=== PATIENT | male | born 1950 | race Caucasian/White ===

== ENCOUNTER 2017-05-24 12:12 | Emergency (ER) | payer MEDICAID, MEDICARE, OTHER ==
[~2017-05-24] VITALS: Ht 172.7 cm; Wt 75.5 kg
[~2017-05-24 12:12] MED LIST: FOLI1TAB16 PO
[2017-05-24] MEDS ORDERED: CEPH500C5 PO (13:26)
[2017-05-24] MEDS ORDERED: SULF1TAB49 PO (13:26)
[2017-05-24] MEDS ORDERED: silver sulfadiazine cream 50gm TP ONE (13:30)
[2017-05-24 13:39] VITALS: BP 150/104
== END 2017-05-24 13:40 | disposition home or self-care (01) ==
LOC: ER 12:13
DX: L03.116 Cellulitis of left lower limb (principal); F17.210 Nicotine dependence, cigarettes, uncomplicated; F12.10 Cannabis abuse, uncomplicated; I10 Essential (primary) hypertension; M10.9 Gout, unspecified; Z88.0 Allergy status to penicillin; Z71.6 Tobacco abuse counseling; Z79.899 Other long term (current) drug therapy; Z59.0 Homelessness
CPT/HCPCS: 99284

== ENCOUNTER 2017-09-01 10:28 | Emergency (ER) | payer MEDICARE ==
[~2017-09-01] VITALS: Ht 172.7 cm; Wt 74.1 kg
[~2017-09-01 10:28] MED LIST changes: +CEPH500C5 PO
[2017-09-01 10:32] VITALS: BP 124/94
[2017-09-01] MEDS ORDERED: fluconazole 100mg tablet PO ONE (11:25)
[2017-09-01] MEDS ORDERED: sulfamethoxazole/trimethoprim DS (800/160mg) tablet PO ONE (11:25)
[2017-09-01] MEDS ORDERED: fluconazole 150mg tablet PO ONE (11:30)
[2017-09-01] MEDS ORDERED: TOLN108P2 TP ×3 (12:14→12:55)
[2017-09-01] MEDS ORDERED: FLUC200T PO ×3 (12:14→12:55)
[2017-09-01] MEDS ORDERED: CLIN-79 PO ×2 (12:14→12:55)
[2017-09-01] MEDS ORDERED: SULF1TAB49 PO (12:30)
[2017-09-01] MEDS ORDERED: ACET-2119 PO (13:00)
== END 2017-09-01 13:32 | disposition home or self-care (01) ==
LOC: ER 10:28
DX: L08.9 Local infection of the skin and subcutaneous tissue, unspecified (principal); I10 Essential (primary) hypertension; F12.90 Cannabis use, unspecified, uncomplicated; Z59.0 Homelessness; Z88.0 Allergy status to penicillin; Z56.0 Unemployment, unspecified; Z79.899 Other long term (current) drug therapy
CPT/HCPCS: 73630; 93005; 99284; A6222

== ENCOUNTER 2017-09-13 09:19 | Outpatient (CLI) | payer MEDICARE ==
[~2017-09-13 09:19] MED LIST changes: +ACET-2119 PO; +CLIN150C8 PO; +FLUC200T PO; +TOLN108P2 TP
[2017-09-13] MEDS ORDERED: nystatin 15 GM powder TP ONE (10:34)
[2017-09-13] MEDS ORDERED: NYSTATIN CREAM - 30GM TUBE TP ONE (11:00)
== END 2017-09-13 10:57 | disposition home or self-care (01) ==
LOC: WOUND CARE 09:19
PROVIDERS: ATTEND Surgery
DX: L03.116 Cellulitis of left lower limb (principal); B35.3 Tinea pedis; I10 Essential (primary) hypertension; F12.90 Cannabis use, unspecified, uncomplicated; Z79.899 Other long term (current) drug therapy
CPT/HCPCS: 99215; Q4106

== ENCOUNTER 2017-09-28 09:55 | Outpatient (CLI) | payer MEDICARE ==
[~2017-09-28 09:55] MED LIST changes: -CEPH500C5 PO
== END 2017-09-28 11:17 | disposition home or self-care (01) ==
LOC: WOUND CARE 09:55 → EDSTATUS 10:00 → WOUND CARE 11:17
PROVIDERS: ATTEND Surgery
DX: L97.521 Non-pressure chronic ulcer of other part of left foot limited to breakdown of skin (principal); L03.116 Cellulitis of left lower limb; B35.3 Tinea pedis; I10 Essential (primary) hypertension; F12.90 Cannabis use, unspecified, uncomplicated; Z79.899 Other long term (current) drug therapy
CPT/HCPCS: 99214

== ENCOUNTER 2018-01-01 11:33 | Inpatient (IN) | payer MEDICARE, OTHER ==
[~2018-01-01] VITALS: Ht 162.6 cm; Wt 72.7 kg
[~2018-01-01 11:33] MED LIST changes: -ACET-2119 PO
[2018-01-01] MEDS ORDERED: normal saline 1000ML IV soln IVB ONE (12:10)
[2018-01-01 12:36] LABS: BASOPHILS # (AUTO) 0.1 X10'3 (0-0.2); BASOPHILS % (AUTO) 0.9 % (0-1); EOSINOPHILS # (AUTO) 0.2 X10'3 (0-0.9); EOSINOPHILS % (AUTO) 2.7 % (0-6); HEMATOCRIT 35.3 % (42.0-52.0); HEMOGLOBIN 12.3 g/dl (14.0-17.9); LYMPHOCYTES % (AUTO) 35.7 % (21-51); MEAN CORPUSCULAR HEMOGLOBIN 31.9 PG (27.0-31.0); MEAN CORPUSCULAR HGB CONC 34.8 % (33.0-36.5); MEAN CORPUSCULAR VOLUME 91.9 FL (78-98); MEAN PLATELET VOLUME 7.6 FL (7.4-10.4); MONOCYTES # (AUTO) 1.2 X10'3 (0-0.9); MONOCYTES % (AUTO) 14.3 % (2-12); NEUTROPHILS # (AUTO) 3.8 X10'3 (1.8-7.7); NEUTROPHILS % (AUTO) 46.4 % (42-75); PLATELET COUNT 218 X10'3 (140-440); RED BLOOD COUNT 3.84 X10'6 (4.70-6.10); RED CELL DISTRIBUTION WIDTH 15.4 % (11.5-14.5); WHITE BLOOD COUNT 8.3 X10'3 (4.5-11.0)
[2018-01-01 12:42] LABS: PARTIAL THROMBOPLASTIN TIME 26 SECONDS (22-32)
[2018-01-01 12:46] LABS: ALANINE AMINOTRANSFERASE 111 U/L (12-78); ALBUMIN/GLOBULIN RATIO 0.8 (1.1-1.5); ALKALINE PHOSPHATASE 60 IU/L (46-116); ANION GAP 8 (8-16); ASPARTATE AMINO TRANSFERASE 80 U/L (10-37); BILIRUBIN,TOTAL 0.3 MG/DL (0.1-1.0); BLOOD UREA NITROGEN 8 MG/DL (7-18); BUN/CREATININE RATIO 9.2 (5.4-32.0); CALCIUM 8.5 MG/DL (8.5-10.1); CHLORIDE 97 MMOL/L (99-107); CREATININE 0.87 MG/DL (0.60-1.10); ETHANOL < 0.010 GM/DL (0.0-0.010); GLUCOSE 102 MG/DL (70-104); POTASSIUM 3.7 MMOL/L (3.5-5.1); SODIUM 131 MMOL/L (135-145); TOTAL CARBON DIOXIDE 25.8 MMOL/L (24-32); TOTAL PROTEIN 6.9 G/DL (6.4-8.2); eGFR 88 ML/MIN
[2018-01-01 13:34] LABS: CLARITY,URINE SLIGHTLY CLOUDY (Clear); COLOR,URINE YELLOW (Yellow); GLUCOSE, URINE NEGATIVE (Neg); KETONES,URINE NEGATIVE (Neg); LEUKOCYTE ESTERASE ,URINE NEGATIVE (Neg); NITRITES, URINE NEGATIVE (Neg); OCCULT BLOOD,URINE NEGATIVE (Neg); PH,URINE 5.5 (4.8-8.0); PROTEIN,URINE NEGATIVE (Neg); UROBILINOGEN,URINE 0.2 E.U/dL (0.2-1.0)
[2018-01-01 13:38] LABS: URINE AMPHETAMINE SCREEN POSITIVE (Neg); URINE BARBITUATE SCREEN NEGATIVE (Neg); URINE BENZODIAZEPINES SCREEN NEGATIVE (Neg); URINE CANNABINOID SCREEN NEGATIVE (Neg); URINE COCAINE SCREEN NEGATIVE (Neg); URINE METHADONE SCREEN NEGATIVE (Neg); URINE OPIATE SCREEN NEGATIVE (Neg); URINE PHENCYCLIDINE SCREEN NEGATIVE (Neg)
[2018-01-01 13:39] LABS: UA COLLECTION TYPE URINAL
[2018-01-01 13:42] LABS: BACTERIA,URINE FEW /HPF (Neg); HYALINE CASTS 0-3 /LPF (NEGATIVE); MUCUS STRANDS MANY /LPF (Neg); RBC,URINE 0-2 /HPF (0-2); RENAL CELLS, URINE FEW /HPF; SQUAMOUS EPITHELIAL CELL,UR MANY /LPF (FEW); TRANSITIONAL EPI CELLS,URINE FEW /HPF; WBC,URINE 0-4 /HPF (0-4)
[2018-01-01] MEDS ORDERED: ondansetron/PF 4mg/2ml inj IV PRN (14:15)
[2018-01-01] MEDS ORDERED: acetaminophen 325mg tablet PO PRN (14:15)
[2018-01-01] MEDS ORDERED: LORazepam 2 mg/ml vial IV PRN (14:15)
[2018-01-01] MEDS ORDERED: potassium Cl 40MEQ/NS 500ml 500 ML IV PRN ×2 (14:15)
[2018-01-01] MEDS ORDERED: mag hydrox/Alum hydrox/simeth 30ml oral suspension PO PRN (14:15)
[2018-01-01] MEDS ORDERED: magnesium 4gm in 100ml NS 100 ML IV PRN (14:15)
[2018-01-01] MEDS ORDERED: dextrose 50%-water 50ml dispensing syringe IV PRN (14:15)
[2018-01-01] MEDS ORDERED: LORazepam 1 MG tablet PO PRN (14:15)
[2018-01-01] MEDS ORDERED: potassium Cl 20 mEq SR tablet PO PRN ×2 (14:15)
[2018-01-01] MEDS ORDERED: bisacodyl 10mg suppository rectal RC PRN (14:15)
[2018-01-01] MEDS ORDERED: magnesium Cl slow-release 64mg tablet PO PRN (14:15)
[2018-01-01] MEDS ORDERED: magnesium hydroxide 30ml (MOM) UD suspension PO PRN (14:15)
[2018-01-01] MEDS ORDERED: magnesium 1gm/100ml D5W IVPB 100 ML IV PRN (14:15)
[2018-01-01] MEDS ORDERED: magnesium 2GM in 50ml NS 50 ML IV PRN (14:38)
[2018-01-01] MEDS: potassium Cl 20mEq in NS 1,000 ML IV SCH (15:01)
[2018-01-01] MEDS: folic acid inj. 2 MG, thiamine inj. 100 MG, MVI, adult No.4 with vit. K 10 ML in dextro... IV SCH ×4 (16:07)
[2018-01-01 17:15] VITALS: BP 158/89
[2018-01-01] MEDS ORDERED: NO HOME MEDS (17:52)
[2018-01-01 18:00] VITALS: BP 110/65
[2018-01-01] MEDS: docusate sod 100mg capsule PO SCH (20:00)
[2018-01-01] MEDS ORDERED: pneumococcal 23-VAL P-sac vacc 25 mcg/0.5ml vial IMVAC ONE (20:15)
[2018-01-01 22:00] VITALS: BP 131/74
[2018-01-02] MEDS: potassium Cl 20mEq in NS 1,000 ML IV SCH ×3 (01:08→21:04)
[2018-01-02 05:00] VITALS: BP 151/72
[2018-01-02 07:00] LABS: ALANINE AMINOTRANSFERASE 85 U/L (12-78); ALBUMIN 2.6 G/DL (3.4-5.0); ALBUMIN/GLOBULIN RATIO 0.7 (1.1-1.5); ALKALINE PHOSPHATASE 47 IU/L (46-116); ANION GAP 9 (8-16); ASPARTATE AMINO TRANSFERASE 61 U/L (10-37); BILIRUBIN,TOTAL 0.1 MG/DL (0.1-1.0); BLOOD UREA NITROGEN 9 MG/DL (7-18); CHLORIDE 102 MMOL/L (99-107); CREATININE 0.69 MG/DL (0.60-1.10); GLUCOSE 91 MG/DL (70-104); MAGNESIUM 1.5 MG/DL (1.5-2.4); POTASSIUM 4.4 MMOL/L (3.5-5.1); SODIUM 136 MMOL/L (135-145); TOTAL CARBON DIOXIDE 24.9 MMOL/L (24-32); TOTAL PROTEIN 6.3 G/DL (6.4-8.2); eGFR > 90 ML/MIN
[2018-01-02] MEDS: docusate sod 100mg capsule PO SCH ×2 (07:21→21:02)
[2018-01-02] MEDS: folic acid inj. 2 MG, thiamine inj. 100 MG, MVI, adult No.4 with vit. K 10 ML in dextro... IV SCH ×4 (07:21)
[2018-01-02] MEDS: enoxaparin 40mg/0.4ml syringe SUBCUT SCH (07:22)
[2018-01-02] MEDS: K and/or MAG REPLACEMENT MC SCH (08:00)
[2018-01-02 10:00] VITALS: BP 130/76
[2018-01-02] MEDS ORDERED: iohexol 300mg/ml 100ml inj. ONE (13:40)
[2018-01-02 15:30] VITALS: BP 152/73
[2018-01-02] MEDS ORDERED: LIDOcaine 0.5% (5mg/ml) 50ml vial ONE (15:32)
[2018-01-02 15:39] VITALS: BP 130/80
[2018-01-02 18:00] VITALS: BP 116/83
[2018-01-02 22:00] VITALS: BP 130/73
[2018-01-03 05:48] LABS: ALANINE AMINOTRANSFERASE 66 U/L (12-78); ALBUMIN 2.5 G/DL (3.4-5.0); ALBUMIN/GLOBULIN RATIO 0.7 (1.1-1.5); ALKALINE PHOSPHATASE 42 IU/L (46-116); ANION GAP 7 (8-16); ASPARTATE AMINO TRANSFERASE 44 U/L (10-37); BILIRUBIN,TOTAL 0.2 MG/DL (0.1-1.0); BLOOD UREA NITROGEN 5 MG/DL (7-18); BUN/CREATININE RATIO 7.7 (5.4-32.0); CALCIUM 8.2 MG/DL (8.5-10.1); CHLORIDE 101 MMOL/L (99-107); CREATININE 0.65 MG/DL (0.60-1.10); GLUCOSE 90 MG/DL (70-104); MAGNESIUM 1.5 MG/DL (1.5-2.4); POTASSIUM 3.8 MMOL/L (3.5-5.1); SODIUM 135 MMOL/L (135-145); TOTAL CARBON DIOXIDE 26.8 MMOL/L (24-32); TOTAL PROTEIN 5.9 G/DL (6.4-8.2); eGFR > 90 ML/MIN
[2018-01-03 06:00] VITALS: BP 136/73
[2018-01-03] MEDS: K and/or MAG REPLACEMENT MC SCH (08:00)
[2018-01-03] MEDS: enoxaparin 40mg/0.4ml syringe SUBCUT SCH (08:05)
[2018-01-03] MEDS: docusate sod 100mg capsule PO SCH ×2 (08:06→20:49)
[2018-01-03] MEDS: folic acid 1mg tablet PO SCH (08:06)
[2018-01-03] MEDS: thiamine 100mg tablet PO SCH (08:06)
[2018-01-03] MEDS: multivitamins, therapeutics tablet PO SCH (08:07)
[2018-01-03 10:00] VITALS: BP 113/73
[2018-01-03] MEDS: potassium Cl 20mEq in NS 1,000 ML IV SCH ×3 (12:27→23:57)
[2018-01-03 15:05] VITALS: BP 121/80
[2018-01-03 18:00] VITALS: BP 127/81
[2018-01-03 22:00] VITALS: BP 120/73
[2018-01-04 06:00] VITALS: BP 140/79
[2018-01-04 06:08] LABS: ALANINE AMINOTRANSFERASE 60 U/L (12-78); ALBUMIN 2.3 G/DL (3.4-5.0); ALBUMIN/GLOBULIN RATIO 0.7 (1.1-1.5); ALKALINE PHOSPHATASE 42 IU/L (46-116); ANION GAP 7 (8-16); ASPARTATE AMINO TRANSFERASE 49 U/L (10-37); BILIRUBIN,TOTAL 0.2 MG/DL (0.1-1.0); BLOOD UREA NITROGEN 6 MG/DL (7-18); BUN/CREATININE RATIO 9.5 (5.4-32.0); CHLORIDE 103 MMOL/L (99-107); CREATININE 0.63 MG/DL (0.60-1.10); GLUCOSE 87 MG/DL (70-104); MAGNESIUM 1.4 MG/DL (1.5-2.4); POTASSIUM 3.9 MMOL/L (3.5-5.1); SODIUM 136 MMOL/L (135-145); TOTAL CARBON DIOXIDE 25.6 MMOL/L (24-32); TOTAL PROTEIN 5.8 G/DL (6.4-8.2); eGFR > 90 ML/MIN
[2018-01-04] MEDS: docusate sod 100mg capsule PO SCH ×2 (07:33→19:42)
[2018-01-04] MEDS: thiamine 100mg tablet PO SCH (07:33)
[2018-01-04] MEDS: multivitamins, therapeutics tablet PO SCH (07:33)
[2018-01-04] MEDS: enoxaparin 40mg/0.4ml syringe SUBCUT SCH (07:34)
[2018-01-04] MEDS: folic acid 1mg tablet PO SCH (07:34)
[2018-01-04] MEDS: K and/or MAG REPLACEMENT MC SCH (08:00)
[2018-01-04] MEDS ORDERED: magnesium Cl slow-release 64mg tablet PO PRN (08:25)
[2018-01-04] MEDS: potassium Cl 20mEq in NS 1,000 ML IV SCH ×2 (11:29→23:03)
[2018-01-04 12:06] VITALS: BP 122/71
[2018-01-04 17:00] VITALS: BP 143/83
[2018-01-04 21:00] VITALS: BP 115/42
[2018-01-05 06:00] VITALS: BP 140/78
[2018-01-05] MEDS: K and/or MAG REPLACEMENT MC SCH (08:00)
[2018-01-05] MEDS: potassium Cl 20mEq in NS 1,000 ML IV SCH (08:14)
[2018-01-05] MEDS: folic acid 1mg tablet PO SCH (08:39)
[2018-01-05] MEDS: enoxaparin 40mg/0.4ml syringe SUBCUT SCH (08:39)
[2018-01-05] MEDS: multivitamins, therapeutics tablet PO SCH (08:39)
[2018-01-05] MEDS: docusate sod 100mg capsule PO SCH (08:39)
[2018-01-05] MEDS: thiamine 100mg tablet PO SCH (08:39)
[2018-01-05 10:00] VITALS: BP 109/67
[2018-01-05] MEDS ORDERED: THI100T PO (12:28)
[2018-01-05] MEDS ORDERED: FOLI1TAB16 PO (12:28)
== END 2018-01-05 13:40 | disposition home or self-care (01) | DRG 917 ==
LOC: ER 11:34 → ED HOLD 14:14 → ORTHO 4S 17:15
PROVIDERS: ADMIT Internal Medicine; ATTEND Internal Medicine
PROC: 0XB53ZX Excision of Left Axilla, Percutaneous Approach, Diagnostic (ICD-10-PCS; principal; 2018-01-02)
PROC: BW241ZZ Computerized Tomography (CT Scan) of Chest and Abdomen using Low Osmolar Contrast (ICD-10-PCS; 2018-01-02)
DX: T43.621A Poisoning by amphetamines, accidental (unintentional), initial encounter (principal); G92 Toxic encephalopathy; E87.1 Hypo-osmolality and hyponatremia; C79.89 Secondary malignant neoplasm of other specified sites; F10.10 Alcohol abuse, uncomplicated; J44.9 Chronic obstructive pulmonary disease, unspecified; I10 Essential (primary) hypertension; F15.10 Other stimulant abuse, uncomplicated; F12.10 Cannabis abuse, uncomplicated; D64.9 Anemia, unspecified; M10.9 Gout, unspecified; M19.90 Unspecified osteoarthritis, unspecified site; M24.411 Recurrent dislocation, right shoulder; Z59.0 Homelessness; Z23 Encounter for immunization; Z88.0 Allergy status to penicillin; Z71.41 Alcohol abuse counseling and surveillance of alcoholic; Y92.89 Other specified places as the place of occurrence of the external cause
CPT/HCPCS: 20206; 36415; 70450; 71045; 71260; 76942; 80053; 80305; 80320; 81001; 82140; 82948; 83735; 85025; 85610; 85730; 87070; 88305; 88342; 93005; 96360; 97110; 97116; 97161; 99285; J1650; J2001; J3411; J3475; J3490; J7030; J7060; Q9967

== ENCOUNTER 2019-07-13 14:10 | Emergency (ER) | payer MEDICARE ==
[~2019-07-13] VITALS: Ht 172.7 cm; Wt 74.0 kg
[~2019-07-13 14:10] MED LIST changes: -CLIN150C8 PO; -FLUC200T PO; +THI100T PO; -TOLN108P2 TP
--- NOTE | 2019-07-13 14:30 | NUR ---
PT WAS BROUGHT IN BY GIRLFRIEND R/T l ARM SWELLING SAYS HE FELL ABOUT A WEEK AGO HE DID NOT NOTICE THE SWELLING HIS GIRLFRIEND DID DENIES PAIN PUSLE IN ARM STRONG
[2019-07-13 14:57] LABS: BASOPHILS # (AUTO) 0.1 X10'3 (0-0.2); BASOPHILS % (AUTO) 1.4 % (0-1); EOSINOPHILS # (AUTO) 0.1 X10'3 (0-0.9); EOSINOPHILS % (AUTO) 1.3 % (0-6); HEMATOCRIT 43.7 % (42.0-52.0); LYMPHOCYTES # (AUTO) 1.8 X10'3 (1.1-4.8); LYMPHOCYTES % (AUTO) 20.9 % (21-51); MEAN CORPUSCULAR HGB CONC 34.3 g/dL (33.0-36.5); MEAN CORPUSCULAR VOLUME 99.1 FL (78-98); MEAN PLATELET VOLUME 8.3 FL (7.4-10.4); MONOCYTES # (AUTO) 1.1 X10'3 (0-0.9); NEUTROPHILS # (AUTO) 5.6 X10'3 (1.8-7.7); NEUTROPHILS % (AUTO) 64.4 % (42-75); PLATELET COUNT 298 X10'3 (140-440); RED BLOOD COUNT 4.41 X10'6 (4.70-6.10); RED CELL DISTRIBUTION WIDTH 14.3 % (11.5-14.5); WHITE BLOOD COUNT 8.8 X10'3 (4.5-11.0)
[2019-07-13 15:07] LABS: PARTIAL THROMBOPLASTIN TIME 30 SECONDS (22-32)
--- NOTE | 2019-07-13 15:09 | NUR ---
PT'S SISTER'S CONTACT PHONE #: [email or web address] [phone]
[2019-07-13 15:10] LABS: ALANINE AMINOTRANSFERASE 20 U/L (12-78); ALBUMIN 3.5 G/DL (3.4-5.0); ALBUMIN/GLOBULIN RATIO 0.8 (1.1-1.5); ALKALINE PHOSPHATASE 62 IU/L (46-116); ANION GAP 8 (8-16); ASPARTATE AMINO TRANSFERASE 21 U/L (10-37); BLOOD UREA NITROGEN 11 MG/DL (7-18); BUN/CREATININE RATIO 12.2 (5.4-32.0); CALCIUM 8.8 MG/DL (8.5-10.1); CHLORIDE 102 MMOL/L (99-107); GLUCOSE 89 MG/DL (70-104); POTASSIUM 4.1 MMOL/L (3.5-5.1); SODIUM 139 MMOL/L (135-145); TOTAL CARBON DIOXIDE 28.8 MMOL/L (24-32); eGFR 84 ML/MIN
[2019-07-13 15:23] LABS: BILIRUBIN,TOTAL 0.1 MG/DL (0.1-1.0)
[2019-07-13 15:44] VITALS: BP 133/85
[2019-07-13] MEDS ORDERED: CEPH500C5 PO (15:44)
== END 2019-07-13 15:52 | disposition home or self-care (01) ==
LOC: ER 14:10
DX: L03.114 Cellulitis of left upper limb (principal); R60.9 Edema, unspecified; I10 Essential (primary) hypertension; M19.90 Unspecified osteoarthritis, unspecified site; F17.200 Nicotine dependence, unspecified, uncomplicated; F12.90 Cannabis use, unspecified, uncomplicated; Z98.890 Other specified postprocedural states; Z59.0 Homelessness; Z56.0 Unemployment, unspecified; Z88.0 Allergy status to penicillin; Z79.2 Long term (current) use of antibiotics; Z79.899 Other long term (current) drug therapy
CPT/HCPCS: 36415; 71045; 80053; 84145; 85025; 85610; 85730; 93971; 99285

== ENCOUNTER 2019-08-24 19:30 | Emergency (ER) | payer MEDICARE ==
[~2019-08-24] VITALS: Ht 172.7 cm; Wt 64.5 kg
[2019-08-24 20:17] VITALS: BP 116/81
== END 2019-08-24 20:19 | disposition home or self-care (01) ==
LOC: ER 19:30
DX: I10 Essential (primary) hypertension (principal); M19.90 Unspecified osteoarthritis, unspecified site; F12.90 Cannabis use, unspecified, uncomplicated; M10.9 Gout, unspecified; Z59.0 Homelessness; Z98.890 Other specified postprocedural states; Z56.0 Unemployment, unspecified; Z88.0 Allergy status to penicillin
CPT/HCPCS: 93005; 99283

== ENCOUNTER 2019-09-03 10:05 | Emergency (ER) | payer MEDICARE ==
[~2019-09-03] VITALS: Ht 172.7 cm; Wt 75.0 kg
--- NOTE | 2019-09-03 11:36 | NUR ---
PT TO XRAY
--- NOTE | 2019-09-03 12:48 | NUR ---
PT FOUND WONDERING DOWN THE VACA. I REORIENTED HIM AND GUIDED HIM BACK TO HIS ROOM , PLACED ON THE MONITOR AND RAISED BOTH RAILS. PROVIDED HIM THE CALL LIGHT. NO NEEDS AT THIS TIME.
[2019-09-03 14:36] VITALS: BP 162/90
== END 2019-09-03 14:38 | disposition home or self-care (01) ==
LOC: ER 10:05
DX: S52.092A Other fracture of upper end of left ulna, initial encounter for closed fracture (principal); S42.002A Fracture of unspecified part of left clavicle, initial encounter for closed fracture; I10 Essential (primary) hypertension; M19.90 Unspecified osteoarthritis, unspecified site; F10.10 Alcohol abuse, uncomplicated; F12.90 Cannabis use, unspecified, uncomplicated; Z56.0 Unemployment, unspecified; Z88.0 Allergy status to penicillin; Z79.899 Other long term (current) drug therapy; W19.XXXA Unspecified fall, initial encounter; Y93.89 Activity, other specified; Y92.89 Other specified places as the place of occurrence of the external cause; Y99.8 Other external cause status; Y90.0 Blood alcohol level of less than 20 mg/100 ml
CPT/HCPCS: 73030; 73070; 73090; 93971; 99284